=== PATIENT | female | born 1955 | race Caucasian/White ===

== ENCOUNTER 2017-01-31 13:20 | Emergency (ER) | payer BC, OTHER ==
[2017-01-31] MEDS ORDERED: Fentanyl 100 MCG/2 ML VIAL ONE (13:31)
--- NOTE | 2017-01-31 16:17 | RAD ---
RIGHT ANKLE THREE VIEWS: Date: 01-31-17 FINDINGS: There is considerable soft tissue swelling laterally. A sliver of bone is seen beneath the lateral m alleolus that is an avulsion, probably from the talar calcaneus. The articular surfaces of the ankle joint are smooth. The lateral view shows a calcaneal spur. IMPRESSION: Significant lateral swelling with evidence of a cortical avulsion laterally. POS: HOME
== END 2017-01-31 14:22 | disposition home or self-care (01) ==
LOC: BURERS 13:24
DX: S93.401A Sprain of unspecified ligament of right ankle, initial encounter (principal); I10 Essential (primary) hypertension; F32.9 Major depressive disorder, single episode, unspecified; W01.0XXA Fall on same level from slipping, tripping and stumbling without subsequent striking against object, initial encounter
CPT/HCPCS: 96374; J3010